=== PATIENT | female | born 1940 | race Caucasian/White ===

== ENCOUNTER → 2024-11-15 14:48 | Outpatient (REF) | payer OTHER, SELFPAY | LOC: RCS 14:48 | PROVIDERS: ATTENDING PHYSICIAN Internal Medicine Cardiovascular Disease; FAMILY PHYSICIAN Family Medicine | DX: I10 Essential (primary) hypertension (principal); I47.10 Supraventricular tachycardia, unspecified; R06.02 Shortness of breath; R53.83 Other fatigue | CPT/HCPCS: 93306 ==

== ENCOUNTER → 2024-11-27 09:29 | Outpatient (REF) | payer OTHER, SELFPAY | LOC: RCS 09:29 | PROVIDERS: ATTENDING PHYSICIAN Internal Medicine Cardiovascular Disease; FAMILY PHYSICIAN Family Medicine | DX: I10 Essential (primary) hypertension (principal); I47.10 Supraventricular tachycardia, unspecified; R06.02 Shortness of breath; R53.83 Other fatigue | CPT/HCPCS: 93017; 93350 ==